=== PATIENT | female | born 1940 | race Caucasian/White ===

== ENCOUNTER 2019-09-18 18:02 | Emergency (ER) | payer OTHER ==
[~2019-09-18] VITALS: Ht 170.2 cm; Wt 77.1 kg
[~2019-09-18 18:02] MED LIST: AMARYL1 MG PO; ATENOLOL25 MG PO; AUG500 PO; CIPRO750 MG PO; COUMADIN1 MG PO; DILTIAZEM HCL120 M2; LAC PO; LOSARTAN POTASS1 TA6 PO; LOVASTATIN40 MG PO; METFORMIN HCL1000 MG PO; ORPHENADRINE C100 MG PO
[2019-09-18 18:09] VITALS: Ht 170.2 cm; Wt 77.1 kg
[2019-09-18 20:09] LABS: PLATELET COUNT 244 x10^3mcL (130-400)
[2019-09-18 20:11] LABS: RED CELL DISTRIBUTION WIDTH 18.8 % (11.5-14.5)
[2019-09-18 20:28] LABS: CALCIUM 9.3 mg/dL (8.5-10.1); CARBON DIOXIDE 27.4 mmol/L (21-32); CHLORIDE SERUM 105 mmol/L (98-107); CREATININE SERUM 0.9 mg/dL (0.6-1.0); GLUCOSE SERUM 148 mg/dL (74-106); POTASSIUM SERUM 3.3 mmol/L (3.5-5.1); SODIUM SERUM 142 mmol/L (136-145)
[2019-09-18 20:32] LABS: BAND NEUTROPHIL 2 % (0-10); BASOPHIL 0 % (0-2); MONOCYTE 3 % (0-7); PLATELET MORPHOLOGY PLATELETS NORMAL; SEGMENTED NEUTROPHILS 84 % (37-75); rbc morphology (normal/abnorm) ABNORMAL (NORMAL)
[2019-09-18 20:34] LABS: ALKALINE PHOSPHATASE 96 U/L (46-116); ALT/SGPT 13 U/L (14-59); AST/SGOT 13 U/L (15-37); BILIRUBIN TOTAL 0.5 mg/dL (0.20-1.00)
[2019-09-18 20:36] LABS: ALBUMIN 2.6 g/dL (3.4-5.0)
[2019-09-18 21:26] LABS: microscopic required? YES; urine erythrocyte TRACE (NEGATIVE)
[2019-09-18 22:00] VITALS: BP 136/61
== END 2019-09-18 22:00 | disposition home or self-care (01) ==
LOC: ED 18:02
PROVIDERS: Emergency Medicine
DX: R55 Syncope and collapse (principal); I10 Essential (primary) hypertension; E11.9 Type 2 diabetes mellitus without complications; Z88.0 Allergy status to penicillin
CPT/HCPCS: 83880; J7030; Q0092